=== PATIENT | female | born 2000 | race Caucasian/White ===

== ENCOUNTER → 2025-01-12 12:50 | Outpatient (REF) | payer BC, SELFPAY | LOC: HWRAD 12:50 | PROVIDERS: ATTENDING PHYSICIAN Physician Assistant | DX: R31.0 Gross hematuria (principal); R10.2 Pelvic and perineal pain; N94.6 Dysmenorrhea, unspecified | CPT/HCPCS: 76770; 76830; 76856 ==

== ENCOUNTER 2025-06-02 11:39 | Emergency (ER) | payer BC, SELFPAY ==
[2025-06-02 11:40] VITALS: BP 130/81
[2025-06-02 12:11] VITALS: BMI 22.1
[2025-06-02 12:27] LABS: Hematocrit 39.4 % (37.0-47.0); Hemoglobin 14.4 g/dL (12.0-16.0); Mean Corp Hgb Conc. 36.5 g/dL (33.0-37.0); Mean Corpuscular Volume 88.7 fL (81.0-99.0); Nucleated Red Blood Cells % 0 %; Platelet Count 252 10^3/uL (130-400); Red Cell Dist. Width 11.5 % (11.5-14.5)
[2025-06-02 12:47] LABS: HCG, Serum Qualitative Screen Negative
--- NOTE | 2025-06-02 13:33 | ED.GENMED ---
History of Present Illness
General
Chief Complaint: Vaginal Bleeding
Source: patient
Time Seen by Provider: 06/02/25 11:49
History of Present Illness
History of Present Illness:
24-year-old female with no significant past medical history presents to the emergency department for evaluation of waxing and waning breakthrough vaginal bleeding in between menstrual cycles since November, symptoms not much worse or different today
other than the patient states the blood seemed a little bit brighter but that the bleeding overall was less than her typical menstrual period. Patient denies any pain. She did see a CHEMISTRY SPECIALIST 1 month ago for this issue but states they merely just
palpated her abdomen and said nothing was wrong which upset the patient and mother. They made a new appointment with a different CHEMISTRY SPECIALIST but this is not until the end of the month. Patient denies any lightheadedness, dizziness, urinary symptoms, bowel
changes or any other concerns. She is not on any anticoagulant medication. Patient denies any concern for
Past History
Past History
ED Past Medical History: None
ED Past Surgical History: None
Social History
Tobacco: Non-smoker
Alcohol: Occasional
Drug: None
Personal: Single
Living: with family
Employment: Employed
Review of Systems
Review of Systems
All Other Systems: ROS reviewed and negative except as documented in HPI and ROS
Phy Exam
Physical Exam
Physical Exam:
GENERAL: Alert , in no apparent distress
EYE: clear conjunctiva b/l
HEAD: NCAT
ENT: o/p clr, mmm.
CARDIAC: Regular rate and rhythm .
LUNGS: Clear breath sounds bilaterally, no acute respiratory distress, no wheezes/rales/rhonchi
ABDOMEN: Soft, without focal tenderness, no r/g, no cvat
NEUROLOGICAL: Alert and oriented
SKIN: Warm and dry, skin intact.
MUSCULOSKELETAL: well perfused.
PSYCH: Normal and appropriate interaction.
Scores
Heart Failure Risk
Heart Failure Risk Score: Not Applicable
Heart Score for Chest Pain Patients
STEMI patient?: Not applicable
Withdrawal Assessment of Alcohol
Withdrawal Assessment Completed?: Not applicable
Course
Orders/Labs/Results
Orders:
Orders
06/02/25 11:50
Urinalysis Reflex To Culture Urgent
Test Result ONCE
06/02/25 12:12
US Pelvis W Transvag Combined Urgent
Reason For Exam: breakthrough vaginal bleeding
06/02/25 12:18
Type+Screen Urgent
Complete Blood Count/With Diff Urgent
Comprehensive Metabolic Panel Urgent
HCG, Serum Qualitative Screen Urgent
Abnormal Lab Results
06/02/25
12:18
MCH 32.4 H pg
(27.0-31.0)
Chloride 108 H mmol/L
(98-107)
06/02/25 12:18
06/02/25 12:18
Vital Signs
Initial and Last Documented VS:
Initial Vital Signs
Temp Pulse Resp BP Pulse Ox
98.0 F 71 14 130/81 98
06/02/25 11:40 06/02/25 11:40 06/02/25 11:40 06/02/25 11:40 06/02/25 11:40
Last Documented Vital Signs
Temp Pulse Resp BP Pulse Ox
98.0 F 71 14 130/81 98
06/02/25 11:40 06/02/25 11:40 06/02/25 11:40 06/02/25 11:40 06/02/25 13:39
MDM/Problems Addressed
Differential Diagnosis Includes:
Uterine Fibroids
Anemia
Malignancy
Hormonal imbalance
/ectopic /miscarriage
MDM/Problems Addressed:
24-year-old female presenting to the emergency department for evaluation of breakthrough vaginal bleeding since November, not much different today although the patient did note the blood seemed a little bit brighter than usual. No pain associated.
Did see a CHEMISTRY SPECIALIST last month but was very upset with the overall encounter. Hemodynamically stable and very well-appearing. She did have an outpatient ultrasound in November at the beginning of the symptoms but is concerned something may have been
missed. Will reobtain labs and ultrasound imaging. Anticipate need for continued outpatient follow-up.
*Radiology
Radiology exam reviewed: radiology read reviewed
*Pulse Oximetry
SaO2: 98
Oxygen Mode of Delivery: Room air
Patient hypoxic: no
*Critical Care Note
Total Time (30-74mins, 75-104mins- exclusive of procedures): Not Applicable
Patient Management
Escalation/DeEscalation of care consider admission/obs:
Patient's workup is unremarkable for any acute pathologies. Ultrasound within normal limits and labs otherwise reassuring. Patient declining medication for bleeding which I do think is reasonable given the bleeding appears to be minimal. She will
follow-up with [facility] as planned. Aware of return precautions to the ER.
ED Attending Note
-
Portions of this chart may have been created with voice recognition software.� Occasional wrong word or��sound alike� substitutions may have occurred due to the inherent limitations of voice recognition software.
Discharge Plan
Departure
Patient Disposition: Home (Routine Discharge)
Date of Disposition: 06/02/25
Time of Disposition: 14:14
Patient with high blood pressure during this ER visit?: Yes
Discharge Problem:
Dysfunctional uterine bleeding
Instructions: Bleeding between periods
Referrals:
Antonette Hernandez MD [Family Provider, Family Practice]
Interventions
Interventions:
*Risk Screen - Suicide Last Done: 06/02/25 11:40
*General Assessment Last Done: 06/02/25 11:40
*Neglect/Abuse Screening Last Done: 06/02/25 11:40
*ED COVID-19 Vaccine History Last Done: 06/02/25 11:40
*ED Influenza Vaccine History Last Done: 06/02/25 11:40
ED-Female Genitourinary Assessment Last Done: 06/02/25 12:23
Discharge Date and Time
Print Language: KAZAKH
[2025-06-02 13:42] LABS: ALT (SGPT) 15 U/L (0-35); AST (SGOT) 18 U/L (14-36); Albumin 4.6 g/dl (3.5-5.0); Alkaline Phosphatase 46 U/L (38-126); Blood Urea Nitrogen 10 mg/dl (7-17); Calcium 9.6 mg/dl (8.4-10.2); Carbon Dioxide 22 mmol/L (22-30); Chloride 108 mmol/L (98-107); Estimated Creatinine Clearance > 125 ml/min; Glucose 90 mg/dl (70-99); Potassium 4.2 mmol/L (3.5-5.1); Sodium 137 mmol/L (135-145); Total Protein 6.9 g/dl (6.3-8.2); eGFR > 60.00
== END 2025-06-02 14:15 | disposition home or self-care (01) ==
LOC: EMR 11:39
PROVIDERS: Physician Assistant Medical; EMERGENCY PHYSICIAN Emergency Medicine; FAMILY PHYSICIAN Family Medicine
DX: N93.8 Other specified abnormal uterine and vaginal bleeding (principal)
CPT/HCPCS: 99284; 76830; 76856; 80053; 84703; 85025; 86850; 86900; 86901